=== PATIENT | male | born 1940 | race Two or more races ===

== ENCOUNTER 2019-03-12 19:34 | Emergency (ER) | payer MEDICARE, MEDICAID ==
[~2019-03-12] VITALS: Ht 170.2 cm; Wt 88.3 kg
[2019-03-12 20:28] LABS: ALANINE AMINOTRANSFERASE 10 U/L (12-78); ALBUMIN 2.8 g/dL (3.4-5.0); ANION GAP 8 mmol/L (5-15); CALCIUM 8.6 mg/dL (8.5-10.1); CHLORIDE 106 mmol/L (98-107); CREATININE 1.19 mg/dL (0.7-1.3)
[2019-03-12 20:30] LABS: ALKALINE PHOSPHATASE 74 U/L (45-117); BILIRUBIN,TOTAL 0.8 mg/dL (0.2-1.0); TOTAL PROTEIN 7.4 g/dL (6.4-8.2)
[2019-03-12 20:36] LABS: BASOPHILS # (AUTO) 0.05 x10^3/uL (0-0.1); BASOPHILS % (AUTO) 1 % (0-1); EOSINOPHILS # (AUTO) 0.38 x10^3/uL (0-0.4); EOSINOPHILS % (AUTO) 4 % (1-7); LYMPHOCYTES # (AUTO) 1.81 x10^3/uL (1-3.4); LYMPHOCYTES % (AUTO) 18 % (22-44); MD NO; MEAN CORPUSCULAR HEMOGLOBIN 27.2 pg (27.5-34.5); MEAN CORPUSCULAR HGB CONC 32.3 g/dL (33.2-36.2); MEAN CORPUSCULAR VOLUME 84.2 fL (81-97); MEAN PLATELET VOLUME 7.4 fL (7.4-10.4); MONOCYTES # (AUTO) 0.62 x10^3/uL (0.2-0.8); MONOCYTES % (AUTO) 6 % (2-9); NEUTROPHILS # (AUTO) 7.18 x10^3/uL (1.8-6.8); NEUTROPHILS % (AUTO) 72 % (42-75); PLATELET COUNT 341 x10^3/uL (130-400); RED CELL DISTRIBUTION WIDTH 14.8 % (9.4-14.8)
[2019-03-12] MEDS ORDERED: ONDANSETRON ODT 4 MG PO ONE (21:00)
--- NOTE | 2019-03-12 21:11 | NUR ---
PT. TO ROOM FORM LOBBY
[2019-03-12] MEDS ORDERED: ONDANSETRON ODT 4 MG ONE (21:13)
--- NOTE | 2019-03-12 21:20 | NUR ---
PT. TO ED TONIGHT WITH C/O DIARRHEA/DIFFUSE ABD PAIN/N/V X 4 DAYS. FAMILY REPORTS "HE GOES TO THE BATHROOM 12 X A DAY." URINE WAS ALREADY SENT TO LAB. PT. MEDICATED PER NOV FOR NAUSEA. LABS HAVE BEEN DRAWN AND X-RAY IS COMPLETED. PT. UNABLE TO PROVIDE STOOL SAMPLE THUS FAR. PER FAMILY NO RECENT ABX USE OR HOSPITIALIZAIONS. PT. NON-TOXIC APPEARING. SKIN PWD. PT. PLACED ON CONTINUOUS PULSE OX, B/P MONITORS. VS UPDATED AND STABLE. AWAITING PROVIDER EVAL AND FURTHER ORDERS. ALL SAFETY MEASUERS OBSERVED.
[2019-03-12 21:24] LABS: MICROSCOPIC INDICATED
[2019-03-12 21:32] LABS: CULTURE INDICATED? NO
--- NOTE | 2019-03-12 22:22 | NUR ---
PT. REPORTS NAUSEA HAS RESOLVED AFTER PO ZOFRAN. PT. DENIES NEED FOR PAIN MEDS AT THIS TIME. TO CT VIA ASAEL BOLAND.
[2019-03-12] MEDS ORDERED: MORPHINE SULFATE 4 MG/ML, 1ML IVPush PRN (22:30)
[2019-03-12] MEDS ORDERED: OMNIPAQUE 350 MG/ML, 100ML BOTTLE ONE (22:41)
--- NOTE | 2019-03-12 22:52 | NUR ---
PT. CONTINUES TO DENY ANY PAIN OR NEEDS AT THIS TIME. AWAITING CT RESULTS. PT. HAS NOT HAD ANY STOOL SINCE ARRIVAL TO ED.
--- NOTE | 2019-03-12 22:54 | NUR ---
CHART UP FOR RECHECK BY ERP NOW.
[2019-03-12] MEDS ORDERED: ONDANSETRON 2MG/ML, 2ML IVPush ONE (23:00)
--- NOTE | 2019-03-12 23:10 | NUR ---
DR. MEDINA AT TO DISCUSS ED FINDINGS WITH PT. AND FAMILY. PT. PROVIDED WITH CRACKERS AND WATER TO ENSURE PT. IS ABLE TO TOLERATE PO INTAKE.
--- NOTE | 2019-03-12 23:30 | NUR ---
PT. PASSED PO CHALLENGE
[2019-03-12 23:48] VITALS: BP 125/85
== END 2019-03-12 23:49 | disposition home or self-care (01) ==
LOC: ED 22:59
DX: K52.9 Noninfective gastroenteritis and colitis, unspecified (principal)
CPT/HCPCS: 36415; 74021; 74177; 80053; 81001; 85025; 99284; Q0162; Q9967